=== PATIENT | female | born 1980 | race Caucasian/White ===

== ENCOUNTER → 2016-09-25 | Day surgery (SDC) | payer OTHER ==
[~2016-09-25] VITALS: Ht 177.8 cm; Wt 61.4 kg
[~2016-09-25] MED LIST: CHLORHEXIDINE GLUCONATE 2 % 1 PACK (2 CLOTHS) TOPICAL PRN; DO NOT ADM ANY ANTICOAGULANT DRUGS PRN; FAMOTIDINE 20 MG/2 ML VIAL ONE; INSULIN HUMAN REGULAR 1,000 UNITS/10 ML VIAL SQ PRN; KETOROLAC TROMETHAMINE 30 MG/ML (IVP) VIAL IV PUSH ONE; LACTATED RINGER'S 1000 ML IV PRN; LIDOCAINE 1%/EPINEPHrine 1:100,000 SOLN 30 ML VIAL INFIL ONE; METOPROLOL TARTRATE 25 MG TAB PO PRN; MIDAZOLAM HCL 2 MG/2 ML VIAL ONE; ONDANSETRON HCL 4 MG/2 ML VIAL IV PUSH ONE; ONDANSETRON HCL 4 MG/2 ML VIAL IV PUSH PRN; POVIDONE IODINE 5% (ANTISEPSIS KIT) 4 APPLICATIONS EACH NARE PRN; PROPOFOL 200 MG/20 ML AMP IV ONE; SODIUM CHLORID 0.9% 500 ML IV PRN; oxyCODONE/ACETAMINOPHEN 5 MG/325 MG TAB PO ONE
[2016-09-25 09:00] VITALS: BP 112/80; PULSE 71; RESP 16; TEMP 98.4; O2SAT 100
[2016-09-25 09:21] LABS: BETA HCG QUANT LESS THAN 1 MIU/ML (0-5)
--- NOTE | 2016-09-25 10:07 | MH ---
cc: JOSE COPE M.D. DATE OF ADMISSION: 09/25/2016 HISTORY OF PRESENT ILLNESS The patient is a 36-year-old white female, G2, P2, who has had an Essure placed, who presented to my office in July of 2016 for yearly checkup. At that time she was not having any complaints and she was planning on a procedure to remove the Essure to become again. Her Pap smear was done which came back with a high-grade DONNA. We then performed a colposcopy that came back with two cervical lesions at 6 o'clock to 12 o'clock, each of them were biopsied. The 6 o'clock came back with ANTONIA II to III and the 12 o'clock came back with some fragments favoring a high-grade lesion. Her ECC came back as benign. Based on the ANTONIA II to III on her cervical biopsy we are planning to perform a LEEP cone biopsy. She is aware of the risks of the surgery which are including bleeding at 2-3 weeks out and the potential risk of incompetent cervix at a rate of 5% and she desires to proceed. PAST MEDICAL HISTORY Past medical history is negative. PAST SURGICAL HISTORY Essure tubal occlusion. MEDICATION Medications currently are Flexeril as needed. ALLERGIES Allergies to medicines are none. SOCIAL HISTORY One pack per day of tobacco. Occasional alcohol. No drug use. She is and works at [employer]. FAMILY HISTORY Family history is pertinent for Parkinson's. GYNECOLOGIC HISTORY No prior abnormal Paps or STDs. OBSTETRICAL HISTORY Two full-term pregnancies, vaginal deliveries. PHYSICAL EXAMINATION VITAL SIGNS: Her weight is 133, height 5 feet 10, blood pressure 114/66, pulse of 70. BREASTS: Without masses, nodes or discharge. CHEST: Clear to auscultation bilaterally. CARDIAC: Regular rate and rhythm without murmur, rub or gallop. ABDOMEN: Soft, nontender, nondistended. There is no hepatosplenomegaly. PELVIC EXAM: Vulva, vagina, normal external female genitalia without lesions. Vaginal vault without discharge. Colposcopy revealed a lesion at 12 to 3 o'clock with punctation, mosaicism an atypical vessels and another lesion between 6 and 9 o'clock with punctation, mosaicism and atypical vessels. Uterus is normal size, nontender. Adnexa without masses. ASSESSMENT/PLAN High-grade lesion, severe dysplasia of the cervix. Plan will be for LEEP cone biopsy. MD ANN-MARIE Adam/TLL /9:33 AM /9:52 AM
[2016-09-25 12:35] VITALS: BP 106/60; PULSE 64; RESP 18; TEMP 97.4; O2SAT 100
--- NOTE | 2016-09-27 13:01 | MP ---
cc: JOSE COPE M.D. DATE OF SURGERY 09/25/2016 PREOPERATIVE DIAGNOSIS Severe cervical dysplasia. POSTOPERATIVE DIAGNOSIS Severe cervical dysplasia. PROCEDURE PERFORMED LEEP cone biopsy [employer] Dr. Jose Cope ANESTHESIA General by facemask FINDINGS IN SURGERY Included a normal appearing cervix. BLOOD LOSS Minimal COMPLICATIONS None PROCEDURE IN DETAIL Proper consents were obtained, the patient was taken to the operating room where general by face mask anesthesia was applied. She was then placed in the dorsal lithotomy position, sterilely prepped and draped. At this time, an insulated bivalve speculum was placed in the vaginal vault. I injected circumferentially with lidocaine with epinephrine solution around the cervix. I then went ahead and performed an ectocervical LOOP in the posterior lip of the cervix followed by anterior ectocervical LOOP followed by an ECC. Hemostasis was achieved with the Bovie cautery. The instruments were removed. Counts were correct and the patient was stable to the recovery room. MD ANN-MARIE Adam/IVIS /1:27 PM /1:03 PM
== END | disposition home or self-care (01) ==
LOC: HSDC 08:21
PROVIDERS: ATTEND Obstetrics & Gynecology
PROC: 0UBC7ZX Excision of Cervix, Via Natural or Artificial Opening, Diagnostic (ICD-10-PCS; principal; 2016-09-25 10:28)
DX: N72 Inflammatory disease of cervix uteri (principal); R87.613 High grade squamous intraepithelial lesion on cytologic smear of cervix (HGSIL); F17.200 Nicotine dependence, unspecified, uncomplicated
CPT/HCPCS: 00940; 57522; 84702; 88305; 88307; J1885; J2250; J2405; J3010; J7120